=== PATIENT | male | born 1995 | race Two or more races ===

== ENCOUNTER 2018-02-26 15:42 | Emergency (ER) | payer SELFPAY ==
[~2018-02-26] VITALS: Ht 165.1 cm; Wt 95.3 kg
[2018-02-26 19:50] VITALS: BP 145/98
== END 2018-02-26 21:33 | disposition home or self-care (01) ==
LOC: ER 15:48
DX: M25.462 Effusion, left knee (principal); M54.2 Cervicalgia; M62.838 Other muscle spasm; R42 Dizziness and giddiness
CPT/HCPCS: 29505; 70450; 72125; 73562